=== PATIENT | female | born 1945 | race Caucasian/White ===

== ENCOUNTER 2019-05-15 12:53 | Inpatient (IN) ==
[2019-05-15] MEDS ORDERED: NS 1,000 ML IV ONE ×2 (13:06)
[2019-05-15] MEDS ORDERED: LOMOTIL PO ONE (13:14)
[2019-05-15] MEDS ORDERED: ZOFRAN IV ONE (13:14)
[2019-05-15 13:42] LABS: ALLEN TEST NO; BE -15.8 mmoll (-3.0-3.0); BLOOD TYPE ARTERIAL; HCO3-(ACT) 12.5 mmoll (20.0-26.0); METHB 0.6 % (0.0-1.5); O2(CT) 18.2 mL/dL (15.0-23.0); O2HB 94.8 % (95.0-99.0); PCO2(98.6) 25 mmHg (35-45); PO2(98.6) 100 mmHg (60-100); SAMPLE BLOOD; SAO2 95.5 % (95.0-100.0); THB 13.6 g/dL (11.5-17.4); pH(98.6) 7.22 (7.35-7.45)
[2019-05-15 13:43] LABS: MODALITY ROOM AIR
--- NOTE | 2019-05-15 13:46 | Diag Imaging Result Doc PS360 ---
CHEST-PORTABLE - 05/15/2019 INDICATION: weakness COMPARISON: 03/04/2019 FINDINGS: The lungs are normally expanded and clear. Heart size and mediastinal contours are normal. No pneumothorax or pleural effusion. There is a right chest port in good position. IMPRESSION: Negative exam. Electronically signed by Brady Guerrero 05/15/2019 1:44 PM
[2019-05-15 14:44] LABS: BASO# 0.04 X1000 (0.0-0.2); BASO% 0.3 % (0.0-0.8); EOS# 0.02 X1000 (0.0-0.7); EOS% 0.2 % (0.0-10.0); HEMATOCRIT 33.5 % (37.0-47.0); HEMOGLOBIN 11.2 g/dL (12.0-16.0); IMM GRAN# 0.12 X1000 (0.0-0.04); LYMPH# 2.07 X1000 (1.2-3.4); LYMPH% 16.5 % (20.5-51.1); MCH 27.2 PG (27-31); MCHC 33.4 g/dL (33-37); MCV 81.3 FL (81-99); MONO# 1.01 X1000 (0.11-0.59); MPV 9.3 FL (7.4-10.4); NEUT# 9.29 X1000 (1.4-6.5); PLT 259 X1000 (130-400); RBC 4.12 XMIL (4.2-5.4); RDW 18.6 % (11.5-14.5); WBC 12.55 X1000 (4.8-10.8)
[2019-05-15 14:53] LABS: INR 1.09; PROTIME 14.2 Seconds (11.0-16.0)
[2019-05-15 14:54] LABS: PTT 28.7 Seconds (22.3-41.8)
[2019-05-15 15:02] LABS: ESTIMATED GFR 9
[2019-05-15 15:05] LABS: ACETONE SERUM NEGATIVE (NEGATIVE); AGAP 17; ALB/GLOB RATIO 1.3; ALBUMIN 3.6 g/dL (3.5-5.0); ALKALINE PHOSPHATASE 83 U/L (32-104); BUN 60 mg/dL (8-22); C REACTIVE PROT QUANT 6.81 mg/L (0.00-5.00); CALCIUM 7.4 mg/dL (8.8-10.2); CHLORIDE 99 mmol/L (98-107); COSMO 283; CREATININE 4.6 mg/dL (0.5-0.9); GLUCOSE 235 mg/dL (70-104); GOT 27 U/L (10-30); GPT 32 U/L (10-36); MAGNESIUM 2.6 mg/dL (1.5-2.7); POTASSIUM 4.4 mmol/L (3.5-5.1); SODIUM 129 mmol/L (136-145); TCO2 13 mmol/L (25-35); TOTAL BILIRUBIN 0.85 mg/dL (0.20-1.00); TOTAL PROTEIN 6.3 g/dL (6.3-8.3)
--- NOTE | 2019-05-15 15:35 | PROVIDER DOCUMENTATION ---
This chart was entered by Shayla Sanchez Scribe, acting as scribe for Luke Stauffer MD. HPI-General Adult - General Chief Complaint: Diarrhea Stated Complaint: CANCER PT/DEHYDRATED Time Seen by Provider: 05/15/19 12:57 Source: patient Allergies/Adverse Reactions: Patient Allergies Allergy/AdvReac Type Severity Reaction Status Date / Time Latex, Natural Rubber Allergy SWELLING Verified 10/23/17 06:16 Sulfa (Sulfonamide Allergy RASH Verified 10/23/17 06:16 Antibiotics) Home Medications: Home Medication List Medication Instructions Recorded Confirmed Last Taken Type Carvedilol [Coreg] 12.5 mg PO BID 02/28/17 10/23/17 10/23/17 04:15 History Chlorthalidone 25 mg PO DAILY 02/28/17 10/23/17 10/22/17 History Dulaglutide [Trulicity] 1.5 mg SQ Q7D 02/28/17 10/23/17 10/18/17 History Insulin Glargine [Lantus] 40 units SQ QHS 02/28/17 10/23/17 10/22/17 20:00 History Insulin Glargine [Lantus] 50 units SQ QAM 02/28/17 10/23/17 10/22/17 09:00 History Levothyroxine [Synthroid] 88 mcg PO DAILY 02/28/17 10/23/17 10/22/17 History Losartan Potassium 100 mg PO DAILY 02/28/17 10/23/17 10/22/17 History Pravastatin Sodium 40 mg PO HS 02/28/17 10/23/17 10/22/17 History Zolpidem Tartrate 10 mg PO DAILY 02/28/17 10/23/17 10/22/17 History Bisacodyl [Dulcolax] 5 mg PO DAILY PRN PRN tablet 03/13/17 10/23/17 10/22/17 Rx Biotin 10,000 mcg PO DAILY 10/19/17 10/23/17 10/22/17 History Magnesium Oxide [Mag-Ox] 400 mg PO BID 10/23/17 10/23/17 10/22/17 History Potassium Chloride E.r. [Klor-Con] 40 meq PO BID 10/23/17 10/23/17 10/22/17 History Hydrocodone/APAP 10 mg/325 mg 1 each PO Q6H PRN PRN #10 tablet 10/24/17 Unknown Rx [[place]-10] Promethazine [Phenergan] 25 mg PO Q6H PRN PRN #5 tablet 10/24/17 Unknown Rx - History of Present Illness -Gen Adult Nature of Presenting Problems: 74 yowf c/o dehydration, vomiting, diarrhea for 1 wk. pt has hx of L breast cancer w/mets to brain and pancreas. pt has had 2 chemo tx so far, last one was last monday. pt was seen by Dr. Navarro's [employer] today. pt sts her fsbs has been between 100-200 but has been hospitalized and in coma for hypoglycemia. pt has accessible rt upper chest port. no cough, fever or chills. denies pain. Location of Pain/Injury: reports: none Pain Radiation: reports: no radiation Quality of Pain: reports: none Severity: reports: mild Onset/Duration: reports: 1 week ago Timing: reports: still present Context/Activities at Onset: reports: none Modifying Factors: improves with: nothing Associated Symptoms: reports: diarrhea, vomiting, other (dehydration). denies: cough, EENT symptoms, fever/chills Review of Systems - Adult - REVIEW OF SYSTEMS - ADULT Constitutional: reports: see HPI, other (dehydration). denies: chills, fever, fatique Eyes: reports: no symptoms reported Ears, Nose, Mouth & Throat: reports: no symptoms reported Cardiovascular: reports: no symptoms reported Respiratory: reports: no symptoms reported Gastrointestinal: reports: see HPI, diarrhea, vomiting. denies: abdominal pain, constipation, nausea Genitourinary: reports: no symptoms reported Musculoskeletal: reports: no symptoms reported Integumentary: reports: no symptoms reported Neurological: reports: no symptoms reported Psychiatric: reports: no symptoms reported Endocrine: reports: no symptoms reported Hematologic/Lymphatic: reports: no symptoms reported Allergic/Immunologic: reports: no symptoms reported All Other Systems: Reviewed and Negative Past History - Adult - PAST MEDICAL HISTORY-ADULT Review of Records: reports: Nursing Assessment Review, Medications Reviewed, Social history reviewed & non-contributory. Major Childhood Illnesses: reports: denies history Cardiovascular: reports: HTN Respiratory: reports: denies history Gastrointestinal: reports: denies history Obstetrical/Gynecological: reports: denies history Genitourinary: reports: denies history Musculoskeletal: reports: denies history Neurological: reports: denies history Endocrine/Immune: reports: Diabetes Other Conditions: reports: other cancer (L breast cancer w/mets to brain and pancreas) - PRIOR SURGERIES/PROCEDURES Surgical/Procedure History: reports: cholecystectomy, hysterectomy, indwelling device, orthopedic (extremity), back/neck, other - IMMUNIZATION STATUS Childhood Immunizations: See Nurse Assessment Flu Vaccine: See Nurse Assessment - FAMILY HISTORY Family History: reviewed, not pertinent - SOCIAL HISTORY Smoking: non-smoker Substance Use: none/never Physical Exam-General - PHYSICAL EXAM-ADULT Initial Vital Signs Reviewed: Yes - CONSTITUTIONAL General Appearance: alert, no apparent distress, obese. negative: lethargic, slow to respond, obtunded - EYES Eyes: PERRL/EOMI - HEAD, EARS, NOSE, MOUTH & THROAT HENMT: normocephalic/atraumatic, moist mucous membranes - NECK Neck: non-tender, full range of motion, supple, normal inspection - RESPIRATORY Respiratory: lungs clear, normal breath sounds, other (pt has accessible rt upper chest port). negative: chest non-tender - CARDIOVASCULAR Cardiovascular: normal peripheral pulses, regular rate, rhythm, other ( hypotensive 72/46 on arrival) - GASTROINTESTINAL (ABDOMEN) Abdominal Exam: non tender, soft, no organomegaly, no pulsatile mass, abnormal bowel sounds (hyperactive). negative: normal bowel sounds, distended, rebound, tenderness - MUSCULOSKELETAL Back Exam: normal inspection Extremity: normal range of motion, non-tender, normal inspection - SKIN Integumentary: normal color, normal turgor, warm/dry - NEUROLOGIC Neurologic: grossly normal, no motor/sensory deficits - PSYCHIATRIC Psych/Mental Status: normal mood/affect, normal thought content, normal thought process, oriented x 3 Progress - PLAN OF CARE/RESULTS Progress/Plan/Lab Results: Vital Signs - 8 hr 05/15/19 12:58 Temperature 97.4 F L Pulse Rate 87 Respiratory Rate 16 Blood Pressure 72/46 O2 Sat by Pulse Oximetry 100 Orders Category Date Time Status NEWS Score 2-4:Order NEWS Lactate Series NOW Care 05/15/19 13:02 Active Saline Loc NOW Care 05/15/19 13:03 Active CHEST-PORTABLE [RAD] Stat Exams 05/15/19 13:05 Ordered ABG [RESP] Routine Lab 05/15/19 13:04 Ordered ACETONE SERUM [CHEM] Stat Lab 05/15/19 13:04 Uncollected BLOOD CULTURE [BLDCUL] Stat Lab 05/15/19 13:04 Uncollected C REACTIVE PROT QUANT [CHEM] Stat Lab 05/15/19 13:05 Uncollected CBC WITH ELECTRONIC DIFF [HEME] Stat Lab 05/15/19 13:05 Uncollected COMPREHENSIVE METABOLIC PANEL [CHEM] Stat Lab 05/15/19 13:05 Uncollected INFLUENZA SCREEN A/B Stat Lab 05/15/19 13:05 Uncollected LACTATE, PLASMA [CHEM] Lab 05/15/19 13:15 Uncollected LACTATE, PLASMA [CHEM] Lab 05/15/19 16:15 Uncollected LACTATE, PLASMA [CHEM] Lab 05/15/19 19:15 Uncollected LACTATE, PLASMA [CHEM] Stat Lab 05/15/19 13:05 Uncollected MAGNESIUM [CHEM] Stat Lab 05/15/19 13:05 Uncollected PRO B-NATRIURETIC PEPTIDE Stat Lab 05/15/19 13:05 Uncollected PROTIME WITH INR [COAG] Stat Lab 05/15/19 13:05 Uncollected PTT [COAG] Stat Lab 05/15/19 13:05 Uncollected TROPONIN T HIGH SENSITIVITY Stat Lab 05/15/19 13:05 Uncollected TSH Stat Lab 05/15/19 13:07 Ordered TYPE & SCREEN [BBK] Stat Lab 05/15/19 13:06 Uncollected URINALYSIS W/POSS RFLX CULT [URINALYSIS] Stat Lab 05/15/19 13:05 Uncollected 0.9% Sodium Chloride Inj [Ns] 1,000 ml Med 05/15/19 13:06 Active IV 999 mls/hr 0.9% Sodium Chloride Inj [Ns] 1,000 ml Med 05/15/19 13:06 Active IV 999 mls/hr EKG [EKG] Stat Ther 05/15/19 13:04 Ordered Result Diagrams: 05/15/19 14:20 05/15/19 14:20 - REASSESSMENT Reassessment #1 Time Reassessed: 15:30 Status: improving (BP 104/43 after 1L of IVF, still has more IVF pending) - XRAY 1 XRAY Study: Chest Impression: Normal, See EMR Report ( CHEST-PORTABLE - 05/15/2019 INDICATION: weakness COMPARISON: 03/04/2019 FINDINGS: The lungs are normally expanded and clear. Heart size and mediastinal contours are normal. No pneumothorax or pleural effusion. There is a right chest port in good position. IMPRESSION: Negative exam. Electronically signed by Brady Guerrero 05/15/2019 1:44 PM 05/15/19 1344 Interpreting Physician: Brady Guerrero MD Dictated Date/Time: 05/15/19 1343 cc: Luke Stauffer MD; Smith Schmidt MD) - CONSULTS/PCP/HOSPITALIST Notification #1 *Consult/PCP/Hospitalist*: Dorothy for Dr. Smart Time Discussed: 15:23 Reason/Comments: Don't do insulin drip, acoidosis likely metabolic, not DKA Consult Disposition: Admit Departure - Departure Date of Disposition Decision: 05/15/19 Time of Disposition Decision: 15:31 DIAGNOSIS: Nausea, vomiting, and diarrhea, Hypotension due to hypovolemia, Metabolic acidosis, Acute kidney injury (nontraumatic) Chemotherapy adverse reaction Qualifiers: Encounter type: initial encounter Qualified Code(s): T45.1X5A - Adverse effect of antineoplastic and immunosuppressive drugs, initial encounter Disposition: ADMITTED INPATIENT 09 Certified Medical Emergency: Emergent Condition: Fair Referrals and Follow-Ups: Smith Schmidt MD [Primary Care Provider] - - Critical Care Note This patient required my direct & personal management of CC.: No Attestation - Physician/ ESTEPHANIE Attestation Patient care was provided by Advanced Practice Provider:: No The physician spent face to face time with patient:: Yes Advanced Practice Provider documentation review:: Supervising physician onsite and consulted in the evaluation and care of this patient. The physician did have a face to face encounter with the patient. This chart was documented by the indicated scribe, (Shayla Sanchez Scribe) and accurately reflects the services I performed and decisions made by me, Luke Stauffer MD, as attested by the provider's signature.
--- NOTE | 2019-05-15 16:54 | HISTORY AND PHYSICAL ---
PRIMARY CARE PHYSICIAN: Dr. Smith Schmidt. ONCOLOGIST: Dr. Navarro. CHIEF COMPLAINT: Vomiting and diarrhea over the past week that has progressively worsened after receiving her last chemotherapy treatment 1 week ago. HISTORY OF PRESENTING ILLNESS: This is a 74-year-old, female who presents to [facility] from her oncologist's office where she was seen today after complaining of vomiting and diarrhea over the past week. She is currently being treated for left breast cancer with metastases to the brain and pancreas. Has completed two treatments so far with the last one being last Monday. Her workup today showed a white blood cell count of 12.55. An ABG with pH of 7.22, pCO2 of 25, bicarb 12.5. This is on room air. Her sodium was 129, BUN was 60, creatinine 4.6, blood sugar was 235, with a negative acetone. Chest x-ray was negative. She will be admitted for further evaluation and treatment. PAST MEDICAL HISTORY: Left breast cancer with metastases to the brain and pancreas, hypertension, and diabetes type 2. PAST SURGICAL HISTORY: Cholecystectomy, hysterectomy, a port placement, and a back surgery. FAMILY HISTORY: Reviewed and noncontributory. SOCIAL HISTORY: She currently lives with family. Denies any tobacco, alcohol, or illicit drug use. ALLERGIES: Latex, natural rubber, and sulfa. HOME MEDICATIONS: A current list will be obtained, reconciled, reviewed, and restarted as appropriate. We will place an order for nursing to update and confirm home medications. LABORATORY DATA: Showed a white blood cell count of 12.55, hemoglobin 11.2, hematocrit 33.5, platelets 259,000. PT and INR of 14.2 and 1.09. ABG with a pH of 7.22, pCO2 of 25, PO2 of 100, bicarb 12.5, and this was on room air. Sodium of 129, potassium 4.4, chloride 99, CO2 of 13, BUN of 60, creatinine 4.6, glucose 235, magnesium 2.6. Troponin T high sensitivity 38. Plasma lactate of 1.8. TSH of 5.83. Acetone level was negative. Chest x-ray showed a negative exam. REVIEW OF SYSTEMS: She denied any fever, chills, blurred vision, dizziness, chest pain, coughing, shortness of breath. She has had increased fatigue. Denied any abdominal pain but has had nausea with vomiting and diarrhea over the past week. Denied any burning or hurting with urination. PHYSICAL EXAMINATION: VITAL SIGNS: On arrival, she had a temperature of 97.4 degrees, pulse 87, respirations 16, blood pressure 72/46, saturating 100% on room air. GENERAL: This is a 74-year-old, female who is lying in the bed and answers questions appropriately. HEENT: Normocephalic, atraumatic. Normal ENT inspection. Oropharynx and nares are clear. Eyes: Pupils are equal, round, reactive to light and accommodation. Extraocular movements are intact. NECK: Normal inspection. Normal range of motion. LUNGS: Clear to auscultation bilaterally with equal lung expansion and chest wall movement. HEART: Regular rate and rhythm. No murmurs, rubs, or gallops. ABDOMEN: Soft, nontender, nondistended. Bowel sounds are present x4 quadrants. MUSCULOSKELETAL: She has 3/5 strength x4 extremities. NEUROLOGICAL: The cranial nerves 2-12 appear grossly intact. ASSESSMENT: 1. Hypotension. 2. Hyponatremia. 3. Acute kidney injury. 4. Diarrhea. 5. Metabolic acidosis. 6. Diabetes type 2 with hyperglycemia. PLAN: She will be admitted to the medical unit, placed on telemetry. Placed on a diabetic diet. Pattern of blood sugars with sliding scale insulin. SCDs for DVT prophylaxis. Normal saline at 125 mL an hour, Zofran 4 mg IV q.4 hours p.r.n. We are going to do a stool for C. difficile toxin, ova and parasites, with trichrome stool culture. Do serial lactates. We will consult nephrology. Place SCDs for DVT prophylaxis. Recheck a CBC and BMP in the a.m. Further orders after seen by attending. It is noted after fluid resuscitation that her blood pressure came back up to 104/43. We will continue to monitor. Dictated by MANPREET Christianson for Dk Jackson MD Addendum: Patient seen and examined by myself. Agree with MANPREET note. It reflects my assessment and plan. Patient is being admitted to hospital for [place] and hyponatremia. She has breast cancer and received chemotherapy recently. Will start IV fluids and monitor patient closely. Will consult her primary oncologist. cc: MANPREET Christianson MD Michael Roxana, MD [facility]
[2019-05-15 17:00] LABS: URINE SOURCE CLEAN CATCH
[2019-05-15 17:07] LABS: BILIRUBIN URINE NEGATIVE (NEGATIVE); BLOOD URINE NEGATIVE (NEGATIVE); COLOR YELLOW; GLUCOSE URINE NEGATIVE (NEGATIVE); KETONE URINE NEGATIVE (NEGATIVE); LEUKOCYTES URINE SMALL (NEGATIVE); NITRITE URINE NEGATIVE (NEGATIVE); PH URINE 5.5; PROTEIN URINE 30 mg/dL (NEGATIVE); SP GRAVITY URINE 1.014; TURBIDITY URINE CLEAR (CLEAR); UROBILINOGEN URINE NORMAL (NORMAL)
[2019-05-15 17:08] LABS: UR EPITHELIAL CELLS <10 /HPF (<10); URINE BACTERIA NEGATIVE /HPF; URINE RBC <10 /HPF (<10)
[2019-05-15] MEDS ORDERED: ZOFRAN IV PRN (17:45)
[2019-05-15] MEDS ORDERED: TYLENOL PO PRN (17:45)
[2019-05-15] MEDS: NS 1,000 ML IV SCH (18:40)
[2019-05-15] MEDS: HUMALOG SUBQ SCH (20:16)
[2019-05-16] MEDS: NS 1,000 ML IV SCH ×2 (02:17→09:42)
[2019-05-16] MEDS: HUMALOG SUBQ SCH (06:18)
[2019-05-16 07:36] LABS: BASO# 0.03 X1000 (0.0-0.2); BASO% 0.3 % (0.0-0.8); EOS# 0.04 X1000 (0.0-0.7); EOS% 0.4 % (0.0-10.0); HEMATOCRIT 29.1 % (37.0-47.0); HEMOGLOBIN 9.6 g/dL (12.0-16.0); IMM GRAN# 0.11 X1000 (0.0-0.04); LYMPH# 2.61 X1000 (1.2-3.4); LYMPH% 24.3 % (20.5-51.1); MCH 27.3 PG (27-31); MCV 82.7 FL (81-99); MONO# 0.99 X1000 (0.11-0.59); MONO% 9.2 % (1.7-9.3); MPV 8.5 FL (7.4-10.4); NEUT# 6.98 X1000 (1.4-6.5); NEUT% 64.8 % (42.2-75.2); PLT 227 X1000 (130-400); RBC 3.52 XMIL (4.2-5.4); RDW 18.6 % (11.5-14.5); WBC 10.76 X1000 (4.8-10.8)
[2019-05-16 08:00] LABS: CALCIUM 7.2 mg/dL (8.8-10.2); POTASSIUM 3.1 mmol/L (3.5-5.1)
--- NOTE | 2019-05-16 09:50 | NEPHROLOGY CONSULTATION ---
DATE: 05/16/2019 REASON FOR CONSULTATION: Acute kidney injury. ATTENDING PHYSICIAN: Dr. Gonzalez. HISTORY OF PRESENT ILLNESS: Ms. Correia is a 74-year-old, white female with a history of hypothyroidism, diabetes, hypertension, breast cancer diagnosed in 2018, and she underwent left mastectomy. Chemotherapy was offered at the time, but deferred. She has recently started chemotherapy because of metastatic disease to pancreas and brain. She had her most recent course of chemotherapy approximately 1 week ago. Since that date, she has been experiencing nausea, vomiting, and profuse diarrhea. Very little p.o. intake over that period of time. No abdominal pain. No chills, fever, sweats, night sweats, cough, sputum, etc. Because of these worsening symptoms, her diuretics were discontinued. She continued to do poorly, and therefore is admitted through the emergency room. Her initial evaluation in the emergency room found significant hypotension with blood pressure 72/46 and heart rate of 87. She has not been febrile at any time. She has been treated with IV fluid resuscitation. Urine volume remains low. Diarrhea is ongoing. She has not had any further vomiting since admission. PAST MEDICAL HISTORY: As above. HOME MEDICATIONS: Include levothyroxine, carvedilol, pravastatin, zolpidem, magnesium oxide, potassium chloride, metoclopramide, diphenoxylate, potassium, multivitamin, furosemide, lorazepam, omeprazole, ondansetron. ALLERGIES: Latex and rubber. SOCIAL HISTORY: . Lives in [place]. No alcohol or tobacco history. FAMILY HISTORY: Noncontributory. REVIEW OF SYSTEMS: Negative with the exception of lower extremity edema. It is symmetrical. She has none at this time. OBJECTIVE: Vital Signs: Blood pressure 126/54, heart rate 88, respirations 18, afebrile. General: No acute distress. Skin: Warm and dry with multiple bruises on the right arm. HEENT: Conjunctivae are pink. Pupils are equal. Oropharynx is clear. Tongue is glistening, moist. Neck: Supple. Trachea is midline. Neck veins are not visible at 30 degrees. Chest: Mastectomy deformity on the left. Heart: PMI is nondisplaced. Regular rate and rhythm with S4, but no murmurs. Lungs: Equal breath sounds anteriorly. No crackles or wheezes. Abdomen: Soft, nontender. Bowel sounds are present. No organomegaly or masses. Extremities: No edema, clubbing, or cyanosis. Neurologic: Nonfocal. IMPRESSION: Most likely related to intravascular volume depletion. Creatinine improved from 4.5 to 3 with normal saline overnight. She does have a moderate metabolic acidosis, likely related to normal saline and diarrhea. I will change her intravenous fluids to lactated Ringer's. Potassium supplementation as needed. Renal ultrasound. cc: Saad Yang MD
[2019-05-16] MEDS ORDERED: DECADRON PO SCH (11:00)
[2019-05-16] MEDS: HUMULIN R SUBQ SCH ×3 (11:27→20:27)
--- NOTE | 2019-05-16 11:51 | PROGRESS NOTE ---
DATE: 05/16/2019 SUBJECTIVE: Ms Carolyne Correia is a 74-year-old female. She is in no acute distress. She states that she is still having loose stools that are dark green in color. She has had at least 3 today. However, she is denying abdominal pain. There is no nausea or vomiting. Still with lower urine output. OBJECTIVE: Vital signs: Temperature 97.9 degrees, heart rate 92, respiratory rate 18, blood pressure 104/37, O2 saturation 98% on room air. General: Ms. Carolyne Correia is a 74-year-old female. She is in no acute distress and is able answer questions appropriately. Cardiovascular: S1, S2. Regular rate and rhythm. No rubs, gallops, murmurs. No lower extremity edema. +2 dorsalis and radial pulses. Negative for JVD and carotid bruits. Pulmonary: Clear to auscultation. Bilateral breath sounds. No accessory muscle use or work of breathing noted. Gastrointestinal: Soft, nontender, nondistended. Positive bowel sounds x4. Extremities: Moves all extremities equally. Decreased range of motion. Neurologic: Alert and oriented x3. Follows commands. Sensory is intact. Skin: Warm, dry, intact. LABORATORY DATA: White blood cells 10,000, hemoglobin 9, hematocrit 29, platelet count 227,000. Sodium 139, potassium 3.1, BUN 46, creatinine 3.0, glucose 110, calcium 7.2. MICROBIOLOGY: Stool samples have not been performed yet. We will check with nursing staff to make sure that gets sent. IMAGING: No new imaging. ASSESSMENT AND PLAN: 1. Intractable nausea, vomiting, and diarrhea. The nausea, vomiting has resolved. She still continues to have diarrhea causing dehydration and potassium loss. At home she takes diphenoxylate/atropine, and we will resume that. 2. Acute kidney injury with metabolic acidosis and hypokalemia, likely secondary to fluid volume loss due to diarrhea and remotely vomiting. The vomiting has subsided. She continues to have diarrhea. She is followed by Dr. Yang who has changed her saline to lactated Ringer's with 20 of potassium at 125 mL/hour. With IV fluid hydration, she has improved on her creatinine. She still continues to be metabolic acidosis. Hopefully should improve over the next 24 hours with fluid volume resuscitation. 3. Hypotension, which has resolved with history of hypertension, is on Coreg. Coreg will be resumed but at the lowest dose possible at this time. She is currently not tachycardic. Blood pressure is stable. We will resume that tonight. 4. Breast cancer with metastasis to the brain and pancreas. We will continue her on her dexamethasone twice a day. We will also consult Dr. Navarro in which she actually came from his office. 5. Iron deficiency anemia. We will continue her iron supplementation. 6. Diabetes mellitus type 2 with hyperglycemia. Diabetic diet. Pattern blood glucoses and sliding scale insulin. 7. Hyponatremia is now resolved. Sodium 139. 8. Hypokalemia. She takes oral supplementation of potassium at home. I believe she is losing more potassium through her bowel movements. Dr. Yang has since added potassium supplementation through her IV fluids. 9. Hypothyroidism. Continue Synthroid. 10. Leukocytosis, resolved. It was likely reactive to dehydration. 11. Deep venous thrombosis prophylaxis sequential compression devices. Dictated by MANPREET Easley for Dieudonne Gonzalez MD cc: MANPREET Easley MD I have seen and examined Ms Correia today. She continues to have diarrhea. Her mucus membrane is dry. We will continue with IV fluids. Re-evaluate tomorrow. I agree with the above notes. Plan discussed with DAVID. SARAH
--- NOTE | 2019-05-16 13:07 | HEMO/ONC CONSULTATION ---
DATE: 05/16/2019 REASON FOR CONSULTATION: She is a known patient of ours for metastatic breast cancer to the brain, pancreas and bone. HISTORY OF PRESENT ILLNESS: This is a 74-year-old female, who was seen in our office yesterday for routine his lab follow-up. She was found to have a significant increase in her creatinine of 4.71 feeling weak and reported having diarrhea for 1 week. She stated Lomotil did not help. We sent the patient to the ER for further evaluation and possible admission. Upon her evaluation in the ER, she was found to have a slightly elevated white count, a creatinine of 4.6, blood sugar 235. Sodium 129. Her chest x-ray was negative. She was admitted for further evaluation. In the clinic we currently treat her for metastatic breast cancer to the brain, pancreas and bone. The patient has recently started treatment with Taxotere, Herceptin, and Perjeta. She has had 1 cycle. Her last dose was on 05/08/2019. Her dosing schedule was to be every 3 weeks. PAST MEDICAL HISTORY: Left breast cancer with metastasis, type 2 diabetes and hypertension. PAST SURGICAL HISTORY: Left breast surgery, bilateral oophorectomy, cholecystectomy, hysterectomy, port placement and back surgery. SOCIAL HISTORY: The patient denies tobacco, alcohol, or illicit drug use. ALLERGIES: Latex, natural rubber and sulfa. HOME MEDICATIONS: Carvedilol, dexamethasone, diphenoxylate, atropine, ferrous sulfate, furosemide, Lantus SoloSTAR, Synthroid, lorazepam, magnesium oxide, Reglan, Prilosec, Zofran, Klor- Con, pravastatin, vitamin B complex, zinc sulfate, and zolpidem tartrate. REVIEW OF SYSTEMS: The patient complains of weakness and diarrhea. PHYSICAL EXAMINATION: Vital Signs: Temperature 98.2 degrees, pulse rate 86, respiratory rate 18, blood pressure 116/44, O2 saturation 100% on room air. She is in 0/10 pain. General: On physical examination, the patient is in no acute distress. Cardiovascular: Normal S1, S2. Heart rate and rhythm regular. No murmurs noted. Respiratory: Lung sounds are clear to auscultation. Normal respiratory effort. Gastrointestinal: Abdomen is soft, nontender, nondistended. Bowel sounds are positive. Extremities: Bilateral lower extremities noted. Neurological: Alert and oriented x3. No focal motor deficits noted. Answers questions appropriately. LABORATORY: WBCs 10.76, hemoglobin 9.6, hematocrit 29.1, platelet count 227,000. Sodium 139, potassium 3.1, creatinine 3.0, calcium 7.2. IMAGING: Chest x-ray: No acute findings. ASSESSMENT AND PLAN: 1. Nausea, vomiting, diarrhea. Currently, the nausea and vomiting has resolved. She continues to have diarrhea. Check stool cultures and c.diff. 2. Acute kidney injury. The patient has been evaluated by Nephrology. This is most likely due to volume depletion. Her creatinine has already improved since yesterday. Appreciate Nephrology input. 3. Hypotension. Hopefully, this will improve with rehydration. 4. Breast cancer with metastasis to the brain, pancreas and bone. The patient follows with Dr. Loco regarding her brain metastasis/radiation. Her last office note states that she was tapered off steroids. Please call Dr. Loco/Bee for clarification. 5. Iron deficiency anemia. The patient needs to continue her iron supplementation. She is monitored in the clinic. 6. Deep venous thrombosis prophylaxis. Keep the patient with sequential compression devices. 7. Hypokalemia and hypocalcemia: Replete potassium and calcium per hospital protocol. 8. Disposition: The patient appears to be improving. We will continue to monitor peripherally over the weekend. Dictated by MANPREET Telles for Paulie Navarro MD cc: Paulie Navarro MD [facility]
--- NOTE | 2019-05-16 14:52 | Diag Imaging Result Doc PS360 ---
EXAM: ABDOMEN FLAT/UPRIGHT HISTORY: diarrhea TECHNIQUE: Two views COMPARISON: None. FINDINGS: There are air-filled loops of bowel and colon with air-fluid levels. The gallbladder has been removed. No organomegaly. There has been surgery to the lower lumbar spine. IMPRESSION: Ileus versus partial distal obstruction. Electronically signed by Pablo Goldberg 05/16/2019 2:49 PM
[2019-05-16] MEDS: POTASSIUM CHLORIDE 20 MEQ in LR 1,000 ML IV SCH ×2 (15:08→18:43)
[2019-05-16] MEDS: MAG-OX PO SCH ×2 (15:08→20:21)
[2019-05-16] MEDS: FERROUS SULFATE PO SCH (15:08)
[2019-05-16] MEDS: SYNTHROID PO SCH (15:09)
[2019-05-16] MEDS: PRILOSEC PO SCH (15:09)
--- NOTE | 2019-05-16 15:40 | Diag Imaging Result Doc PS360 ---
EXAM: US RENAL 2 (RETROPER) COMPLETE HISTORY: decreased renal function TECHNIQUE: Renal ultrasound COMPARISON: None. FINDINGS: The right kidney measures 10 x 5 x 5 cm. The left kidney measures 10 x 5 x 5 cm. Normal renal echogenicity and cortical thickness. No renal stones or hydronephrosis. No renal mass. The urinary bladder is distended and normal. IMPRESSION: Normal renal ultrasound. Electronically signed by Pablo Goldberg 05/16/2019 3:38 PM
[2019-05-16] MEDS: LOMOTIL PO PRN (17:27)
[2019-05-16] MEDS: COREG PO SCH (20:20)
[2019-05-16] MEDS: MELATONIN PO SCH (20:21)
[2019-05-16] MEDS: ZINC SULFATE PO SCH (20:21)
[2019-05-16] MEDS ORDERED: COREG PO SCH (21:00)
[2019-05-17] MEDS: POTASSIUM CHLORIDE 20 MEQ in LR 1,000 ML IV SCH ×3 (02:10→18:06)
[2019-05-17] MEDS: HUMULIN R SUBQ SCH ×4 (06:03→21:11)
[2019-05-17] MEDS: PRILOSEC PO SCH (06:11)
[2019-05-17] MEDS: SYNTHROID PO SCH (06:11)
[2019-05-17 07:29] LABS: BASO# 0.03 X1000 (0.0-0.2); BASO% 0.5 % (0.0-0.8); EOS# 0.03 X1000 (0.0-0.7); EOS% 0.5 % (0.0-10.0); HEMATOCRIT 27.2 % (37.0-47.0); HEMOGLOBIN 9.1 g/dL (12.0-16.0); IMM GRAN# 0.05 X1000 (0.0-0.04); IMM GRAN% 0.8 % (0.0-0.5); LYMPH# 1.49 X1000 (1.2-3.4); LYMPH% 22.7 % (20.5-51.1); MCH 27.3 PG (27-31); MCHC 33.5 g/dL (33-37); MCV 81.7 FL (81-99); MONO# 0.82 X1000 (0.11-0.59); MONO% 12.5 % (1.7-9.3); MPV 8.2 FL (7.4-10.4); NEUT# 4.15 X1000 (1.4-6.5); PLT 232 X1000 (130-400); RBC 3.33 XMIL (4.2-5.4); RDW 18.5 % (11.5-14.5); WBC 6.57 X1000 (4.8-10.8)
[2019-05-17 07:46] LABS: CALCIUM 7.1 mg/dL (8.8-10.2)
[2019-05-17 07:47] LABS: ALBUMIN 2.9 g/dL (3.5-5.0); CREATININE 1.8 mg/dL (0.5-0.9); MAGNESIUM 1.7 mg/dL (1.5-2.7); POTASSIUM 2.9 mmol/L (3.5-5.1); TOTAL BILIRUBIN 0.77 mg/dL (0.20-1.00); TOTAL PROTEIN 5.7 g/dL (6.3-8.3)
[2019-05-17] MEDS: ZINC SULFATE PO SCH ×2 (08:08→21:09)
[2019-05-17] MEDS: FERROUS SULFATE PO SCH (08:08)
[2019-05-17] MEDS: LOMOTIL PO PRN ×2 (08:09→18:06)
[2019-05-17] MEDS: COREG PO SCH ×2 (08:09→21:10)
[2019-05-17] MEDS: MAG-OX PO SCH (08:09)
[2019-05-17] MEDS: PATIENT'S OWN MED PO SCH (08:11)
--- NOTE | 2019-05-17 10:54 | HEMO/ONC PROGRESS NOTE ---
DATE: 05/17/2019 SUBJECTIVE: Ms. Correia is feeling relatively well this morning. She continued to have several liquid bowel movements yesterday, and has had two so far today. She denies nausea or vomiting. She denies pain. No acute events occurred overnight. She is feeling well. OBJECTIVE: Vital Signs: Temperature 98.5 degrees, pulse rate 91, respiratory rate 16, blood pressure 123/49, and O2 saturation 99% on room air. She is in 0/10 pain. General: On physical exam, the patient is in no acute distress. Cardiovascular: Normal S1 and S2. Heart rate and rhythm regular. Respiratory: Lung sounds are clear to auscultation. Normal respiratory effort. Gastrointestinal: The abdomen is soft and nondistended. Bowel sounds are positive. Extremities: Bilateral lower extremity edema noted. Neurological: Alert and oriented x3. No focal motor deficits noted. LABORATORY: WBCs 6.57, hemoglobin 9.1, hematocrit 27.2, platelet count 232,000. Sodium 139, potassium 2.9, creatinine 1.8, calcium 7.1. ASSESSMENT AND PLAN: 1. Diarrhea. The patient is continuing to be treated with Lomotil. Diarrhea appears to be slowing down. The patient is also being replenished her medical management. Her Clostridium difficile is negative. Stool cultures are negative. 2. Acute kidney injury. This has greatly improved with gentle hydration. The patient was evaluated by Nephrology. Creatinine today is 1.8. We appreciate Neurology's input. 3. Breast cancer with metastasis to the brain, pancreas, and bone. The patient's brain metastasis is followed by Dr. Loco/Dr. Gamboa. We are treating the patient in the clinic with Taxotere, Herceptin, and Perjeta. She has only had 1 dose. Her treatments will be held until she recovers from this acute hospitalization. 4. Deep venous thrombosis prophylaxis. The patient should have on sequential compression devices. She should be up out of the bed at least 3 times a day. 5. Hypokalemia and hypocalcemia. Continue repletion per the hospital protocol. 6. Disposition: Overall, the patient is noted to be improving. We will continue to monitor her peripherally. Dictated by MANPREET Telles for Paulie Navarro MD cc: Paulie Navarro MD [facility]
--- NOTE | 2019-05-17 12:34 | NEPHROLOGY PROGRESS NOTE ---
DATE: 05/17/2019 SUBJECTIVE: She states she is feeling well today. No shortness of breath. No nausea or vomiting. Her GI symptoms are improved. OBJECTIVE: Vital Signs: Blood pressure 123/49, heart rate 91, respirations 16, afebrile. Intake and output are incomplete. General: No acute distress. Skin: Warm and dry. Neck: Neck veins are not distended. Heart: Regular with a gallop. Lungs: Equal. No crackles. Abdomen: Soft, nontender. Bowel sounds present. Extremities: No edema, clubbing or cyanosis. IMPRESSION AND PLAN: 1. Acute kidney injury secondary to intravascular volume depletion. Improving. 2. Diarrhea is improving as well. 3. Acidosis. It is improved and anion gap is minimal. 4. Continue lactated Ringer's with potassium until her acid-base disturbance and volume depletion are resolved entirely. I will stop her magnesium oxide as that may worsen diarrhea. Otherwise, I will sign off, but if I can be of further assistance, please do not hesitate to call. cc: Saad Yang MD
--- NOTE | 2019-05-17 14:02 | PROGRESS NOTE ---
DATE: 05/17/2019 SUBJECTIVE: I have seen and examined Ms. Correia today. She refers to be feeling a lot better. She still says she has continued having diarrhea, but otherwise she feels much stronger than yesterday. OBJECTIVE: Vital signs: Blood pressure is 131/54, pulse of 85, respiration is 15, temperature of 98.5 degrees. Patient is saturating 100% on room air. General: Ms. Correia is a 74-year-old elderly female. She is in bed, no distress. HEENT: Mucosa is pink, slightly dry. Anicteric. Acyanotic. Neck: Supple. Chest: Good air entry bilaterally. There were no crepitations, no rhonchi. Cardiovascular: Regular rate and rhythm. No murmurs, no rubs, no gallops. There is a port on the right anterior chest wall. GI/Abdomen: Soft, nontender. Bowel sounds present. Extremities: No pedal edema. 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 There is no focal deficit. LABORATORY DATA: The patient's hemoglobin is 9.1. Rest of CBC is unremarkable. Chemistry is also reviewed. Bicarbonate is 15 with a gap of 14, BUN is 28, creatinine is down to 1.8. So far, the blood cultures and stool cultures have all come back negative. ASSESSMENT: 1. Diarrhea, most likely secondary to chemotherapy-induced enteritis. The patient cultures so far have been negative for infectious etiology. We are going to continue with the symptomatic management. 2. Acute on chronic renal failure associated with non gap metabolic acidosis. Patient continues to be on hydration. Creatinine is trending down. 3. History of left breast cancer, ER positive, [place] negative and HER 2 positive. The patient follows up with Dr. Navarro. 4. Hypotension, secondary to intravascular depletion from dehydration, improved. 5. Electrolyte abnormality. We will continue to replace and follow. 6. Hypothyroidism. Will continue with Synthroid. PLAN: So, in general, I think Ms. Correia is doing well. She continues to be slightly dehydrated and continues having increased output from the stool. So far, the stool studies have been unremarkable for any infectious etiology. We think this was probably secondary to the chemotherapy side effects. She seems to be getting better. We are going to continue with the fluids, make sure her acid-base is completely improved before she is discharged hopefully tomorrow. cc: Dieudonne Gonzalez MD
[2019-05-17] MEDS: MELATONIN PO SCH (21:10)
[2019-05-18] MEDS: POTASSIUM CHLORIDE 20 MEQ in LR 1,000 ML IV SCH ×2 (03:05→11:45)
[2019-05-18 06:06] LABS: BASO# 0.03 X1000 (0.0-0.2); BASO% 0.4 % (0.0-0.8); EOS# 0.03 X1000 (0.0-0.7); EOS% 0.4 % (0.0-10.0); HEMATOCRIT 25.4 % (37.0-47.0); HEMOGLOBIN 8.3 g/dL (12.0-16.0); IMM GRAN# 0.07 X1000 (0.0-0.04); LYMPH# 1.51 X1000 (1.2-3.4); LYMPH% 22.4 % (20.5-51.1); MCH 26.8 PG (27-31); MCHC 32.7 g/dL (33-37); MCV 81.9 FL (81-99); MONO# 0.84 X1000 (0.11-0.59); MONO% 12.5 % (1.7-9.3); MPV 8.3 FL (7.4-10.4); NEUT# 4.26 X1000 (1.4-6.5); NEUT% 63.3 % (42.2-75.2); PLT 223 X1000 (130-400); RDW 18.4 % (11.5-14.5); WBC 6.74 X1000 (4.8-10.8)
[2019-05-18] MEDS: SYNTHROID PO SCH (06:28)
[2019-05-18] MEDS: PRILOSEC PO SCH (06:28)
[2019-05-18] MEDS: HUMULIN R SUBQ SCH ×2 (06:29→11:42)
[2019-05-18] MEDS: LOMOTIL PO PRN ×2 (06:29→16:34)
[2019-05-18 06:43] LABS: ALBUMIN 2.6 g/dL (3.5-5.0); CREATININE 1.5 mg/dL (0.5-0.9); MAGNESIUM 1.4 mg/dL (1.5-2.7); POTASSIUM 3.1 mmol/L (3.5-5.1); TOTAL BILIRUBIN 0.85 mg/dL (0.20-1.00); TOTAL PROTEIN 5.2 g/dL (6.3-8.3)
[2019-05-18 06:45] LABS: CALCIUM 6.9 mg/dL (8.8-10.2)
[2019-05-18] MEDS: FERROUS SULFATE PO SCH (10:07)
[2019-05-18] MEDS: ZINC SULFATE PO SCH (10:07)
[2019-05-18] MEDS: COREG PO SCH (10:07)
[2019-05-18] MEDS: PATIENT'S OWN MED PO SCH (10:07)
[2019-05-18] MEDS ORDERED: CALCIUM GLUCONATE 4.65 MEQ in NS 50 ML IV ONE (14:18)
[2019-05-18 15:44] VITALS: BP 127/51
--- NOTE | 2019-05-18 16:52 | DISCHARGE SUMMARY ---
ADMISSION DATE: 05/15/2019 DISCHARGE DATE: DISCHARGE ADDENDUM: SUBJECTIVE: The patient is feeling good and is anxious to go home. I did discuss her laboratory findings. Her potassium is still low at 3.1, but her bicarb is up to 19. Calcium is 6.9, but that was supplemented. Her creatinine is down to 1.5. In any case, she seems stable. She will go home on oral potassium supplements. PHYSICAL EXAMINATION: Her physical exam is really unremarkable. lungs: Clear lung exam. Gastrointestinal: Soft, nontender, nondistended. PROBLEM LIST: 1. Diarrhea. We will discharge her on p.r.n. Lomotil. 2. Metabolic acidosis likely due to prolonged diarrhea that has stabilized. 3. Left breast cancer. She is followed by Dr. Navarro and we will get repeat labs next week. DISCHARGE CONDITION: Stable. cc: Roddy Garza MD
--- NOTE | 2019-05-18 17:27 | DISCHARGE SUMMARY ---
ADMISSION DATE: 05/15/2019 DISCHARGE DATE: 05/18/2019 PRIMARY CARE PHYSICIAN: Dr. Smith Schmidt. ONCOLOGIST: Dr. Navarro. CONSULTATIONS: Nephrology and Oncology. ADMISSION DIAGNOSES: 1. Hypotension. 2. Hyponatremia. 3. Acute kidney injury. 4. Diarrhea. 5. Metabolic acidosis. 6. Diabetes type 2 with hyperglycemia. DISCHARGE DIAGNOSES: 1. Diarrhea, most likely secondary to chemotherapy-induced enteritis. 2. An acute on chronic renal failure associated with a non-gap metabolic acidosis. 3. History of left breast cancer, ER positive, [place] negative, and HER 2 positive. 4. Hypotension secondary to intravascular depletion from dehydration, resolved. 5. Electrolyte abnormality. 6. Hypothyroidism. SUMMARY OF FINDINGS: This is a 74-year-old female who presented from her oncologist's office after she had been seen there and had been complaining of vomiting and diarrhea over the past week. She had completed 2 treatments of chemo with the last one being on the Monday prior to arrival, which would have been 1 week ago. Her white count was 12.55. Her sodium was 129, BUN of 60 with a creatinine of 4.6, blood sugar was 235 with a negative acetone. Chest x-ray was negative. She was admitted, placed on a diabetic diet, pattern sugars with sliding scale insulin, normal saline at 125 mL an hour. We checked stool studies that were negative. Nephrology followed the patient. Her creatinine is back down today to 1.5. She did have a decreased calcium and magnesium and was given calcium gluconate today 4.65 mEq x1 dose. Her sodium is back to normal at 140. It is now felt that she can safely be discharged home today. DISCHARGE MEDICATIONS: Include Coreg 12.5 mg p.o. b.i.d., Lomotil 1 p.o. b.i.d. p.r.n., ferrous sulfate 325 mg p.o. daily, levothyroxine 88 mcg p.o. daily, melatonin 5 mg p.o. at bedtime, omeprazole 20 mg p.o. daily, multivitamin plus vitamin C p.o. daily, zinc sulfate 220 mg p.o. b.i.d., Lantus SoloSTAR 50 units subcutaneous b.i.d. a.c., lorazepam 1 mg p.o. daily p.r.n., Reglan 10 mg p.o. q. 6 hours p.r.n., Zofran 4 mg p.o. t.i.d. p.r.n., and potassium 40 mEq p.o. b.i.d. FOLLOWUP: She will need to follow up with her primary care physician and with her oncologist and call their offices for appointments. All discharge instructions have been reviewed with the patient and she verbalizes understanding. TIME SPENT: A 35-minute discharge. Dictated by MANPREET Christianson for Roddy Garza MD cc: MANPREET Christianson MD Dr. Michael Putman
== END 2019-05-18 17:01 | disposition home or self-care (01) | DRG 394 ==
LOC: ED 12:53 → EDIPHOLD 17:19 → SUATTDRO 17:19 → 3N 19:24
PROVIDERS: ATTEND Internal Medicine